=== PATIENT | female | born 1965 | race Caucasian/White ===

== ENCOUNTER 2016-09-12 12:18 | Emergency (ER) ==
[2016-09-12 12:24] VITALS: TEMP 98.8; BMI 28.6
--- NOTE | 2016-09-12 12:36 | ED.PDOC ---
General ED Provider: Dr. JULIO VILLATORO JR Chief Complaint: Respiratory Complaint Stated Complaint: COUGH, RUNNY NOSE, EAR PAIN, SCRATCHY THROAT. STATES PASSED OUT AT DAUGHTERS HOUSE. STATES IT WAS TOO HOT. [ End ]3 days98.8 91 18 97% 129/ 89 310 Time Seen by Physician: 12:30 Mode of Arrival: Walk-In Information Source: Patient Exam Limitations: No limitations Primary Care Provider[facility] Nursing and Triage Documentation Reviewed and Agree: No Review of Systems - Review Of Systems Constitutional: Reports: Fever, Malaise, Weakness Eyes: Reports: No symptoms Ears, Nose, Mouth, Throat: Reports: Nose discharge, Throat pain Respiratory: Reports: Cough Cardiac: Reports: Lightheadedness, Syncope GI: Reports: No symptoms : Reports: No symptoms Musculoskeletal: Reports: No symptoms Skin: Reports: No symptoms Neurological: Reports: No symptoms Endocrine: Reports: No symptoms Hematologic/Lymphatic: Reports: No symptoms All Other Systems: Other Past Medical History - Past Medical History Previously Healthy: Yes Endocrine: Reports: None Cardiovascular: Reports: None Respiratory: Reports: None Hematological: Reports: None Gastrointestinal: Reports: None Genitourinary: Reports: None Neuro/Psych: Reports: None Musculoskeletal: Reports: None Cancer: Reports: None Last Menstrual Period: 20 YEARS - Surgical History General Surgical History: Reports: Tubal ligation - Family History Family History: Reports: Unknown - Social History Smoking Status: Current every day smoker Hx Substance Use: No Alcohol Screening: None Physical Exam - Physical Exam Appearance: Well-appearing Pain Distress: Mild Eyes: [place], EOMI, Conjunctiva clear ENT: Ears normal, Nose normal, Oropharynx normal Neck: Supple Respiratory: Airway patent, Breath sounds diminished, Rhonchi Cardiovascular: RRR, Pulses normal, No rub, No murmur GI/: Soft, Nontender, No masses, Bowel sounds normal, No Organomegaly Musculoskeletal: Normal strength, ROM intact, No edema, No calf tenderness Skin: Warm, Dry, Normal color Neurological: Sensation intact, Motor intact, Reflexes intact, Cranial nerves intact, Alert, Oriented Psychiatric: Affect appropriate, Mood appropriate Interpretation - Radiology Interpretation Radiology Interpretation By: Radiologist Radiology Results: Positive Exam Interpreted: CXR (small airway inflammation) - EKG Interpretation Time of EKG #1: 12:40 Rate: Normal Rhythm: Sinus Ectopy: None [place]: [place] ST Segment: Normal Critical Care Note - Critical Care Note Total Time (mins): 0 Course - Course Orders, Labs, Meds: Orders Category Date Time Status RAPID FLU A/B Stat LAB 09/12/16 12:30 Uncollected SPUTUM CULTURE Stat LAB 09/12/16 12:30 Uncollected STREP SCREEN Stat LAB 09/12/16 12:29 Uncollected CHEST, 2 VIEWS PA & LAT Stat RADS 09/12/16 12:30 Ordered Vital Signs: Temp Pulse Resp BP Pulse Ox 09/12/16 12:20 98.8 F 91 H 18 129/89 97 Departure - Departure Time of Disposition: 13:25 Disposition: HOME SELF-CARE Discharge Problem: Pneumonia Instructions: Pneumonia (ED) Condition: Good Pt referred to PMD for follow-up: Yes Additional Instructions: Augmentin for infection robitussin DM or robitussin AC for cough increase fluids stop smoking recheck PMD one week Please call your Family Physician as soon as possible to schedule a follow-up appointment. Prescriptions: Amoxicillin/Potassium Clav [Augmentin 875-125 mg Tab] 1 tab PO BIDWM #14 tablet Guaifenesin/Codeine Phosphate [Robitussin AC Syrup] 10 ml PO Q6H PRN #240 ml PRN Reason: Cough Allergies/Adverse Reactions: Allergies No Known Allergies Allergy (Unverified 09/12/16 12:19) Home Medications: Ambulatory Orders 1 [No Reported Medications] 0 02/20/13 Amoxicillin/Potassium Clav [Augmentin 875-125 mg Tab] 1 tab PO BIDWM #14 tablet 09/12/16 Guaifenesin/Codeine Phosphate [Robitussin AC Syrup] 10 ml PO Q6H PRN #240 ml 02/19
--- NOTE | 2016-09-12 13:08 | DI ---
EXAM: Chest two view, frontal and lateral views. HISTORY: Cough. COMPARISON: 02/24/2011. FINDINGS: Heart size is normal. There is no vascular congestion. Peribronchial thickening noted b ilaterally with bibasilar reticulonodular opacities, greater on the left. No pleural effusion or pn eumothorax identified. Osseous structures are intact. IMPRESSION: Peribronchial thickening and bibasilar reticulonodular opacities suggesting small airways inflammati on. Consider follow-up radiographs in 3 months for reassessment.
[2016-09-12 13:22] LABS: FLU INTERNAL QC INTERNAL QC VALID; RAPID FLU A NEGATIVE (NEGATIVE); RAPID FLU B NEGATIVE (NEGATIVE)
[2016-09-12 13:29] VITALS: BP 128/83
== END 2016-09-12 13:40 | disposition home or self-care (01) ==
LOC: ED 12:18
DX: J18.9 Pneumonia, unspecified organism (principal); R55 Syncope and collapse; F17.210 Nicotine dependence, cigarettes, uncomplicated
CPT/HCPCS: 87651; 87804; 87880; 93005; 93010; 99283

== ENCOUNTER 2016-12-01 11:40 | Outpatient (CLI) ==
[2016-12-01 13:14] LABS: BASOPHILS % (AUTO) 0.4 % (0.0-3.0); EOSINOPHILS # (AUTO) 0.2 K/ul (0.0-0.7); EOSINOPHILS % (AUTO) 1.5 % (0.0-7.0); HEMATOCRIT 41.1 % (37.0-47.0); HEMOGLOBIN 13.7 g/dl (12.0-16.0); IMMATURE GRANULOCYTE % (AUTO) 0.4 % (0.0-5.0); LYMPHOCYTES # (AUTO) 3.6 K/uL (0.60-3.4); LYMPHOCYTES % (AUTO) 35.7 (10.0-50.0); MEAN CORPUSCULAR HEMOGLOBIN 30.4 pg (27.0-31.0); MEAN CORPUSCULAR HGB CONC 33.3 (31.8-35.4); MEAN CORPUSCULAR VOLUME 91.3 fl (81.0-99.0); MONOCYTES # (AUTO) 0.6 K/uL (0.4-2.0); MONOCYTES % (AUTO) 5.8 (0-10); NEUTROPHILS # (AUTO) 5.7 K/ul (2.0-6.9); NEUTROPHILS % (AUTO) 56.2; PLATELET COUNT 413 10^3/uL (140-440); WHITE BLOOD COUNT 10.17 K/ul (4.6-10.2)
[2016-12-01 15:43] LABS: ALBUMIN 3.9 g/dL (3.4-5.0); ALBUMIN/GLOBULIN RATIO 0.91; ANION GAP 14.9; BILIRUBIN,TOTAL 0.33 mg/dL (0.00-1.20); BUN/CREATININE RATIO 3.89; CALCIUM 10.1 mg/dL (8.2-10.2); CREATININE 0.77 mg/dL (0.60-1.30); POTASSIUM 3.9 mmol/L (3.5-5.10); TOTAL PROTEIN 8.2 g/dL (6.4-8.2)
== END 2016-12-01 11:41 | disposition home or self-care (01) ==
LOC: LAB 11:40
PROVIDERS: ATTEND Nurse Practitioner Family
DX: K64.4 Residual hemorrhoidal skin tags (principal); D49.2 Neoplasm of unspecified behavior of bone, soft tissue, and skin; E75.6 Lipid storage disorder, unspecified
CPT/HCPCS: 36415; 80053; 80061; 84439; 84443; 85025

== ENCOUNTER 2016-12-05 10:06 | Outpatient (CLI) ==
[2013-02-14 20:17] VITALS: BMI 24.9
--- NOTE | 2016-12-06 08:24 | MAMMO ---
EXAM: Bilateral digital screening mammogram History: Baseline screening Findings: MLO and CC views of bilateral breasts demonstrate scattered fibroglandular breast parench yma. No dominant masses, no suspicious microcalcifications and no architectural distortions Impression: Negative mammogram. Recommend followup routine screening mammography in 1 year. BIRADS 1
== END 2016-12-05 10:07 | disposition home or self-care (01) ==
LOC: MERGE 10:06 → RAD 10:06
PROVIDERS: ATTEND Nurse Practitioner Family
DX: Z12.31 Encounter for screening mammogram for malignant neoplasm of breast (principal)

== ENCOUNTER 2017-07-05 08:06 | Outpatient (CLI) ==
[2016-12-07 13:22] VITALS: BMI 28.6
--- NOTE | 2017-07-05 09:05 | US ---
EXAM: Right upper quadrant abdominal ultrasound. History: Epigastric abdominal pain. Technique: Multiple sonographic images through the abdomen were obtained. Color duplex Doppler was used to interrogate vascular flow. Findings: The liver is not enlarged according to the sonographic measurement given. No focal liver lesions identified sonographically. The visualized pancreas demonstrates no gross abnormality. Ther e is antegrade flow within the main portal vein. Limited visualization of the right kidney demonstra nelly no evidence for hydronephrosis. 0.9 cm anechoic right renal cyst. Multiple gallstones. There is also gallbladder sludge. Gallbladder wall is upper limits of normal i n thickness. Common bile duct is upper limits of normal in caliber measuring 0.6 cm. Impression: Cholelithiasis, gallbladder sludge and upper limits of normal gallbladder wall thickness . Common bile duct is also upper limits of normal in caliber.
== END 2017-07-05 08:07 | disposition home or self-care (01) ==
LOC: RAD 08:06
PROVIDERS: ATTEND Emergency Medicine
DX: R10.13 Epigastric pain (principal)

== ENCOUNTER 2017-12-06 14:27 | Outpatient (CLI) ==
[2016-12-07 13:22] VITALS: BMI 28.6
--- NOTE | 2017-12-06 15:21 | DI ---
EXAM: Four views of the right knee. History: Right knee pain. Findings: No acute fracture or dislocation. No abnormal calcifications or radiopaque foreign bodies . Joint spaces are relatively preserved. Impression: Unremarkable exam
--- NOTE | 2017-12-06 15:21 | DI ---
EXAM: Single view scoliosis evaluation HISTORY: Idiopathic scoliosis. COMPARISON: None FINDINGS: There is no abnormal curvature of the thoracic or lumbar spine. No acute compression fract ures identified. The soft tissues are normal. There are surgical clips in right upper quadrant. IMPRESSION: No evidence of sclerosis of the thoracic or lumbar spine.
--- NOTE | 2017-12-06 15:25 | DI ---
EXAM: Four view left knee COMPARISON: None HISTORY: Knee pain FINDINGS: There is no acute fracture or dislocation. Alignment is anatomic. There is some modest de generative change. Joint spaces are fairly well preserved. There is no soft tissue swelling. No unex pected radio-opaque foreign bodies. IMPRESSION: Modest degenerative changes with no acute abnormality.
== END 2017-12-06 14:28 | disposition home or self-care (01) ==
LOC: RAD 14:27
PROVIDERS: ATTEND Emergency Medicine
DX: M41.125 Adolescent idiopathic scoliosis, thoracolumbar region (principal); M25.562 Pain in left knee; M25.561 Pain in right knee; E78.5 Hyperlipidemia, unspecified
CPT/HCPCS: 36415; 72081; 80053; 80061; 84443; 85025

== ENCOUNTER 2018-05-24 13:46 | Outpatient (CLI) ==
[2016-12-07 13:22] VITALS: BMI 28.6
--- NOTE | 2018-05-27 09:26 | MAMMO ---
EXAM: Bilateral digital screening mammogram (2-D and 3-D) History: Screening Comparison: Bilateral mammogram 12/05/2016 Findings: MLO and CC views of bilateral breasts demonstrate scattered fibroglandular breast parenchy ma. CAD was reviewed by the radiologist. Tomosynthesis was performed. There are no dominant masses , no suspicious microcalcifications and no architectural distortions Impression: Stable negative mammogram. Recommend followup routine screening mammography in 1 year. BIRADS 1
== END 2018-05-24 13:47 | disposition home or self-care (01) ==
LOC: RAD 13:46
PROVIDERS: ATTEND Emergency Medicine
DX: Z12.31 Encounter for screening mammogram for malignant neoplasm of breast (principal)
CPT/HCPCS: 77067

== ENCOUNTER 2018-08-15 11:05 | Outpatient (CLI) | payer OTHER ==
[2016-12-07 13:22] VITALS: BMI 28.6
== END 2018-08-15 11:06 | disposition home or self-care (01) ==
LOC: RHC-LAB 11:05
PROVIDERS: ATTEND Nurse Practitioner Family
DX: D64.9 Anemia, unspecified (principal)
CPT/HCPCS: 36415; 85025

== ENCOUNTER 2019-04-15 07:48 | Outpatient (CLI) ==
[2016-12-07 13:22] VITALS: BMI 28.6
== END 2019-04-15 07:49 | disposition home or self-care (01) ==
LOC: RHC-LAB 07:48 → LAB 07:49
PROVIDERS: ATTEND Nurse Practitioner Family
DX: K21.9 Gastro-esophageal reflux disease without esophagitis (principal); E78.5 Hyperlipidemia, unspecified; F41.9 Anxiety disorder, unspecified
CPT/HCPCS: 36415; 80053; 80061; 84443; 85025